=== PATIENT | male | born 1960 | race Caucasian/White ===

== ENCOUNTER 2017-02-27 16:05 | Outpatient (CLI) | payer BC ==
[~2017-02-27 16:05] MED LIST: KLOR-CON 1010 MEQ PO; LEVAQUIN500 MG PO; LOPERAMIDE HCL2 M1 PO; VITAMINS & MINERALS; VSL PO
--- NOTE | 2017-02-27 16:38 | DIAGNOSTIC IMAGING REPORT ---
PROCEDURE: XR CHEST 2 VIEW INDICATION: URINIARY TRACT INFECTION, PNEUMONIA, ULCERATIVE COLITIS, J-P TECHNIQUE: PA and lateral views. COMPARISON: None. FINDINGS: Resolution of right lower lobe infiltrate. Heart and mediastinum are normal. Thorax is normal. IMPRESSION: 1. Resolution of right lower lobe infiltrate. Lungs clear.
== END 2017-02-27 23:00 ==
LOC: XR SRH 16:05
DX: J15.9 Unspecified bacterial pneumonia (principal); N39.0 Urinary tract infection, site not specified; K51.90 Ulcerative colitis, unspecified, without complications